=== PATIENT | male | born 1960 | race Two or more races ===

== ENCOUNTER 2021-10-31 16:36 | Emergency (ER) | payer OTHER ==
[~2021-10-31] VITALS: Ht 182.9 cm; Wt 99.8 kg
[2021-10-31] MEDS ORDERED: KETO10TA2 PO (20:37)
[2021-10-31] MEDS ORDERED: CIPRO500 MG PO (20:37)
[2021-10-31] MEDS ORDERED: TAMS0.4C PO (20:37)
== END 2021-10-31 20:44 | disposition home or self-care (01) ==
LOC: ER 16:36
DX: N45.1 Epididymitis (principal); N50.812 Left testicular pain; Z88.8 Allergy status to other drugs, medicaments and biological substances